=== PATIENT | male | born 1990 | race Caucasian/White ===

== ENCOUNTER 2016-12-27 21:07 | Emergency (ER) | payer SELFPAY ==
[~2016-12-27] VITALS: Ht 180.3 cm; Wt 115.0 kg
[2016-12-27] MEDS ORDERED: ACETAMINOPHEN 325 MG TABLET PO ONE (21:30)
[2016-12-27 22:24] LABS: INFLUENZA TYPE B NEGATIVE FOR TYPE B (NEGATIVE)
[2016-12-27 22:37] VITALS: BP 138/78
[2016-12-27] MEDS ORDERED: IBUPROFEN 800 MG TABLET PO ONE (22:45)
[2016-12-27] MEDS ORDERED: BENZONATATE 100 MG CAPSULE PO ONE (22:45)
[2016-12-27] MEDS ORDERED: OSELTAMIVIR PHOSPHATE 75 MG CAPSULE PO ONE (22:45)
== END 2016-12-27 22:58 | disposition home or self-care (01) ==
LOC: EMS 21:09
DX: J09.X2 Influenza due to identified novel influenza A virus with other respiratory manifestations (principal)
CPT/HCPCS: 87804; 99284